=== PATIENT | female | born 1965 | race Caucasian/White ===

== ENCOUNTER → 2019-01-28 | Outpatient (CLI) | payer OTHER ==
--- NOTE | 2019-01-28 11:02 | MR ---
EXAMINATION TYPE: MR shoulder LT wo con DATE OF EXAM: 01/28/2019 COMPARISON: None HISTORY: Left shoulder pain TECHNIQUE: Multiplanar, multisequence imaging of the left shoulder is performed without contrast. FINDINGS: Rotator Cuff: There is mild atrophic change of the supraspinatus and infraspinatus muscles. There is diffuse abnormal signal involving the anterior fibers of the supraspinatus tendon along its distal ma rgin and insertion measuring approximately 1.2 cm. Findings are compatible with a partial tear. No re traction. There is increased signal along the distal margin and insertion of the infraspinatus tendon compatibl e with a partial intrasubstance tear no retraction. Acromioclavicular Joint: Mild hypertrophic change of the AC joint results in mild impingement suprasp inatus tendon and muscle. Glenohumeral Joint: No sizable joint effusion. Glenohumeral ligaments grossly intact. Labrum: Findings are suspicious for a SLAP tear Biceps Tendon: The long head of biceps is in normal location within bicipital groove. Bone marrow signal: Benign cyst involving the superior humeral head likely in the basis of impingemen t. IMPRESSION: 1. Impingement with tendinosis involving the distal supraspinatus tendon with anterior fibers demonst rating partial tear but no evidence of retraction at the level of the insertion. 2. SLAP tear 3. Tendinosis of the distal margin and insertion infraspinatus tendon. Partial intrasubstance tear olivarez spected. No retraction.
== END | disposition home or self-care (01) ==
LOC: RADMRIMAIN 09:42
PROVIDERS: ATTEND Physician Assistant Medical
DX: S43.432A Superior glenoid labrum lesion of left shoulder, initial encounter (principal); M75.42 Impingement syndrome of left shoulder; M75.112 Incomplete rotator cuff tear or rupture of left shoulder, not specified as traumatic; M75.82 Other shoulder lesions, left shoulder

== ENCOUNTER 2019-12-19 20:22 | Emergency (ER) | payer OTHER ==
[2019-12-19] MEDS ORDERED: SODIUM CHLORIDE 0.9% 1,000 ML IV STA (20:50)
[2019-12-19] MEDS ORDERED: ONDANSETRON 4 MG/2 ML VIAL IVP STA (20:50)
[2019-12-19] MEDS ORDERED: diphenhydrAMINE 50 MG/ML 1 ML VIAL IVP STA (20:50)
--- NOTE | 2019-12-19 20:50 | ED ---
Dizziness HPI - General Chief Complaint: Dizziness Stated Complaint: Dizziness Time Seen by Provider: 12/19/19 20:26 Source: EMS, RN notes reviewed, old records reviewed Mode of arrival: EMS Limitations: no limitations - History of Present Illness Initial Comments: This is a 54 year female DF for evaluation patient is safe for evaluation regards to dizziness. Room spinning around. Lightheadedness with nausea or vomiting. No recent traumas no fevers. Patient has never had similar symptoms before. MD Complaint: dizziness, lightheadedness, difficulty walking -: hour(s) Timing: sudden onset Description: "room spinning", lightheadedness History of Same: No History of Trauma: No Severity: mild Improves With: medication Worsens With: nothing Associated Symptoms: ataxia, loss of appetite, weakness - Related Data Home Medications Medication Instructions Recorded Confirmed Zolpidem Tartrate [Ambien] 10 mg PO HS PRN 08/02/15 09/04/15 Previous Rx's Medication Instructions Recorded Aspirin EC [Ecotrin] 325 mg PO DAILY #30 tablet. 08/03/15 Atorvastatin Calcium [Lipitor] 40 mg PO HS #30 tab 08/03/15 Allergies Allergy/AdvReac Type Severity Reaction Status Date / Time No Known Allergies Allergy Verified 12/19/19 20:35 Review of Systems ROS Statement: Those systems with pertinent positive or pertinent negative responses have been documented in the HPI. ROS Other: All systems not noted in ROS Statement are negative. Past Medical History Past Medical History: Fibromyalgia Additional Past Medical History / Comment(s): lupus History of Any Multi-Drug Resistant Organisms: None Reported Past Surgical History: Bariatric Surgery Additional Past Anesthesia/Blood Transfusion Reaction / Comment(s): NA Past Psychological History: Anxiety, Bipolar, Depression Smoking Status: Never smoker Past Alcohol Use History: None Reported Past Drug Use History: None Reported - Past Family History Mother Family Medical History: Myocardial Infarction ([place]) Father Additional Family Medical History / Comment(s): hypotension General Exam Limitations: no limitations General appearance: alert, in no apparent distress Head exam: Present: atraumatic, normocephalic, normal inspection Eye exam: Present: normal appearance, PERRL, EOMI. Absent: scleral icterus, conjunctival injection, periorbital swelling ENT exam: Present: normal exam, mucous membranes moist Neck exam: Present: normal inspection. Absent: tenderness, meningismus, lymphadenopathy Respiratory exam: Present: normal lung sounds bilaterally. Absent: respiratory distress, wheezes, rales, rhonchi, stridor Cardiovascular Exam: Present: regular rate, normal rhythm, normal heart sounds. Absent: systolic murmur, diastolic murmur, rubs, gallop, clicks GI/Abdominal exam: Present: soft, normal bowel sounds. Absent: distended, tenderness, guarding, rebound, rigid Extremities exam: Present: normal inspection, full ROM, normal capillary refill. Absent: tenderness, pedal edema, joint swelling, calf tenderness Back exam: Present: normal inspection Neurological exam: Present: alert, oriented X3, CN II-XII intact Psychiatric exam: Present: normal affect, normal mood Skin exam: Present: warm, dry, intact, normal color. Absent: rash Course Vital Signs 12/19/19 12/19/19 20:27 22:03 Temperature 98.3 F Pulse Rate 65 70 Respiratory 18 18 Rate Blood Pressure 176/72 161/88 O2 Sat by Pulse 97 97 Oximetry - Reevaluation(s) Reevaluation #1: 12/19/19 21:18 medical record is reviewed Reevaluation #2: 12/19/19 22:33 Patient is able to ambulate without significant dizziness not ataxic Reevaluation #3: 12/19/19 22:33 Patient informed of results, patient can be discharged home EKG Findings - EKG Comments: EKG Findings:: EKG shows sinus a rate of 72, ID 144, QRS 90, QTc 422 Medical Decision Making - Medical Decision Making 54 female DF for evaluation of dizziness, room spinning and vomiting. Symptoms are resolved here in the ER patient does feel improved at this time is able to ambulatory without significant difficulty. Patient can be discharged home - Lab Data Result diagrams: 12/19/19 20:55 12/19/19 20:55 Lab Results 12/19/19 12/19/19 12/19/19 Range/Units 20:55 20:55 20:55 WBC 6.5 (3.8-10.6) k/uL RBC 4.63 (3.80-5.40) m/uL Hgb 12.3 (11.4-16.0) gm/dL Hct 39.1 (34.0-46.0) % MCV 84.4 (80.0-100.0) fL MCH 26.5 (25.0-35.0) pg MCHC 31.4 (31.0-37.0) g/dL RDW 14.9 (11.5-15.5) % Plt Count 184 (150-450) k/uL Neutrophils % (Manual) 67 % Lymphocytes % (Manual) 28 % Monocytes % (Manual) 3 % Eosinophils % (Manual) 2 % Neutrophils # (Manual) 4.36 (1.3-7.7) k/uL Lymphocytes # (Manual) 1.82 (1.0-4.8) k/uL Monocytes # (Manual) 0.20 (0-1.0) k/uL Eosinophils # (Manual) 0.13 (0-0.7) k/uL Nucleated RBCs 0 (0-0) /100 WBC Manual Slide Review Performed Polychromasia Present Sodium 138 (137-145) mmol/L Potassium 4.4 (3.5-5.1) mmol/L Chloride 108 H (98-107) mmol/L Carbon Dioxide 22 (22-30) mmol/L Anion Gap 8 mmol/L BUN 13 (7-17) mg/dL Creatinine 0.63 (0.52-1.04) mg/dL Est GFR (CKD-EPI)AfAm >90 (>60 ml/min/1.73 sqM) Est GFR (CKD-EPI)NonAf >90 (>60 ml/min/1.73 sqM) Glucose 120 H (74-99) mg/dL Calcium 9.2 (8.4-10.2) mg/dL Phosphorus 3.5 (2.5-4.5) mg/dL Magnesium 1.9 (1.6-2.3) mg/dL Total Bilirubin 0.3 (0.2-1.3) mg/dL AST 30 (14-36) U/L ALT 14 (4-34) U/L Alkaline Phosphatase 71 (38-126) U/L Troponin I <0.012 (0.000-0.034) ng/mL Total Protein 7.2 (6.3-8.2) g/dL Albumin 3.9 (3.5-5.0) g/dL - Radiology Data Radiology results: report reviewed (CT brain is negative for acute disease), image reviewed Disposition Clinical Impression: Benign paroxysmal positional vertigo Disposition: HOME SELF-CARE Condition: Good Instructions (If sedation given, give patient instructions): Vertigo (ED) Is patient prescribed a controlled substance at d/c from ED?: No Referrals: Zelda Alejandra MD [Primary Care Provider] - 1-2 days
[2019-12-19 21:17] LABS: HCT 39.1 % (34.0-46.0); HGB 12.3 gm/dL (11.4-16.0); MCH 26.5 pg (25.0-35.0); MCHC 31.4 g/dL (31.0-37.0); MCV 84.4 fL (80.0-100.0); Mean Platelet Volume 8.1; Platelet Count 184 k/uL (150-450); RBC 4.63 m/uL (3.80-5.40); RDW 14.9 % (11.5-15.5); WBC 6.5 k/uL (3.8-10.6)
--- NOTE | 2019-12-19 21:17 | CT ---
EXAMINATION TYPE: CT brain wo con DATE OF EXAM: 12/19/2019 COMPARISON: 08/01/2015 HISTORY: Dizziness. CT DLP: 1099.4 mGycm Automated exposure control for dose reduction was used. Multiple axial sections were obtained of the brain without contrast. Ventricles and sulci appear normal. There is no mass effect nor midline shift. There is no sign of in tracranial hemorrhage. Calvarium is intact. There is mild mucosal thickening left maxillary sinus. IMPRESSION: Negative CT scan of the brain. Left maxillary sinusitis. There is changing pattern of sinusitis roxanna red to old exam.
[2019-12-19 21:23] LABS: ALT 14 U/L (4-34); AST 30 U/L (14-36); African American GFR (CKD) >90 (>60 ml/min/1.73 sqM); Albumin 3.9 g/dL (3.5-5.0); Alkaline Phosphatase 71 U/L (38-126); Anion Gap 8 mmol/L; Blood Urea Nitrogen 13 mg/dL (7-17); Calcium 9.2 mg/dL (8.4-10.2); Carbon Dioxide 22 mmol/L (22-30); Chloride 108 mmol/L (98-107); Glucose 120 mg/dL (74-99); Magnesium 1.9 mg/dL (1.6-2.3); Non-African American GFR(CKD) >90 (>60 ml/min/1.73 sqM); Phosphorus 3.5 mg/dL (2.5-4.5); Sodium 138 mmol/L (137-145); Total Bilirubin 0.3 mg/dL (0.2-1.3); Total Protein 7.2 g/dL (6.3-8.2)
[2019-12-19 21:35] LABS: Eosinophils # (M) 0.13 k/uL (0-0.7); Lymphocytes # (M) 1.82 k/uL (1.0-4.8); Neutrophils # (M) 4.36 k/uL (1.3-7.7); Neutrophils % (M) 67 %; Nucleated Red Blood Cells 0 /100 WBC (0-0); Total Cells Counted 100
[2019-12-19 21:36] LABS: Polychromasia Present
[2019-12-19 21:58] LABS: Potassium 4.4 mmol/L (3.5-5.1)
[2019-12-19 23:48] VITALS: BP 144/76; PULSE 84; RESP 16; TEMP 98.1
== END 2019-12-19 23:48 | disposition home or self-care (01) ==
LOC: EC 20:22
DX: H81.10 Benign paroxysmal vertigo, unspecified ear (principal); Z98.84 Bariatric surgery status
CPT/HCPCS: 36415; 93005; 80053; 83735; 84100; 84484; 85025; 70450; 99285; 96374; 96375; 96361 ×3; J1200; J2405

== ENCOUNTER → 2020-08-17 | Outpatient (CLI) | payer OTHER ==
[2020-08-17 14:02] LABS: Potassium 3.6 mmol/L (3.5-5.1)
[2020-08-17 14:04] LABS: Basophils # (A) 0.1 k/uL (0-0.2); Basophils % (A) 1 %; Eosinophils # (A) 0.2 k/uL (0-0.7); Eosinophils % (A) 3 %; HCT 44.3 % (34.0-46.0); HGB 14.2 gm/dL (11.4-16.0); Lymphocytes # (A) 1.6 k/uL (1.0-4.8); Lymphocytes % (A) 24 %; MCH 27.7 pg (25.0-35.0); MCHC 32.1 g/dL (31.0-37.0); MCV 86.2 fL (80.0-100.0); Mean Platelet Volume 7.8; Monocytes # (A) 0.3 k/uL (0-1.0); Monocytes % (A) 4 %; Neutrophils # (A) 4.4 k/uL (1.3-7.7); Neutrophils % (A) 66 %; Platelet Count 222 k/uL (150-450); RBC 5.14 m/uL (3.80-5.40); RDW 14.7 % (11.5-15.5); WBC 6.7 k/uL (3.8-10.6)
== END | disposition home or self-care (01) ==
LOC: LABPAT 11:31
PROVIDERS: ATTEND Orthopaedic Surgery
DX: Z01.818 Encounter for other preprocedural examination (principal); M23.92 Unspecified internal derangement of left knee
CPT/HCPCS: 80051; 85025; 93005

== ENCOUNTER → 2020-09-13 | Outpatient (CLI) | payer OTHER ==
--- NOTE | 2020-09-13 21:49 | MR ---
EXAMINATION TYPE: MR knee LT wo con DATE OF EXAM: 09/13/2020 COMPARISON: None HISTORY: left knee pain TECHNIQUE: Multiplanar, multisequence imaging of the left knee is performed without IV contrast. FINDINGS: MEDIAL MENISCUS: Anterior horn medial meniscus appears normal. Posterior horn medial meniscus has mil d increased signal near the anterior portion. Some mild internal derangement may be present. No commu nication with the articular surface is evident. LATERAL MENISCUS: Anterior and posterior horns are intact without tear. CRUCIATE LIGAMENTS: The anterior and posterior cruciate ligaments are intact and unremarkable. COLLATERAL LIGAMENTS: The medial collateral ligament and lateral collateral ligament complex are inta ct and unremarkable. EXTENSOR MECHANISM: Visualized quadriceps and patellar tendons are intact. EFFUSION: No significant suprapatellar joint effusion. POPLITEAL CYST: No popliteal/shafer cyst. TRICOMPARTMENT SPACES: There is narrowing of the medial compartment joint space. Lateral compartment joint space appears preserved. Patellofemoral joint space appears preserved. CARTILAGE: There is thinning of the articular cartilage at the medial compartment from the medial fem oral condyle. BONE MARROW SIGNAL: Minimal increased signal is at the medial tibial plateau likely a small contusion . OTHER: No additional significant abnormality is appreciated. IMPRESSION: 1. Posterior horn medial meniscal internal derangement. Tear communicating with an articular surface is considered less likely. 2. Mild osteoarthritic degenerative change medial compartment. 3. Small contusion at the edge of the medial tibial plateau.
== END | disposition home or self-care (01) ==
LOC: RADMRIMAIN 13:24
PROVIDERS: ATTEND Orthopaedic Surgery
DX: M17.12 Unilateral primary osteoarthritis, left knee (principal); S80.02XA Contusion of left knee, initial encounter; M23.322 Other meniscus derangements, posterior horn of medial meniscus, left knee

== ENCOUNTER 2021-06-10 13:47 | Emergency (ER) | payer OTHER ==
[2021-06-10 14:24] VITALS: RESP 16; TEMP 98
[2021-06-10] MEDS ORDERED: MORPHINE SULFATE 4 MG/ML SYRINGE IM STA (14:47)
[2021-06-10] MEDS ORDERED: methylPREDNISolone SOD SUCCI 125 MG/2 ML VIAL IM ONE (14:47)
--- NOTE | 2021-06-10 15:21 | XR ---
EXAMINATION TYPE: XR lumbar spine 3 views DATE OF EXAM: 06/10/2021 Comparison: None Clinical History: 55-year-old female chronic low back pain worsening today, sciatica Findings: Accentuated lumbar lordosis. Mild multilevel degenerative disc disease. Vertebral body heights are pr eserved and alignment is maintained. Facet arthropathy mid to lower lumbar spine. Impression: Facet arthropathy mid to lower lumbar spine. Accentuated lumbar lordosis. Mild multilevel degenerativ e disc disease. No vertebral compression collapse or malalignment.
--- NOTE | 2021-06-10 15:43 | ED ---
Back Pain HPI - General Chief Complaint: Back Pain/Injury Stated Complaint: back pain Time Seen by Provider: 06/10/21 14:34 Source: patient, RN notes reviewed Limitations: no limitations - History of Present Illness Initial Comments: 55-year-old female that presents to emergency room complaining of left lower back pain with radiation symptoms. She notes that she did not have any injury or trauma she woke up this morning with increased back pain. Patient denied any other issues or complaints. She denied any saddle anesthesia bladder or bowel incontinence or retention. She was otherwise a well-appearing 55-year-old female. She denied any chest pain first breath headache nausea vomiting diarrhea constipation fever fatigue chills. - Related Data Home Medications Medication Instructions Recorded Confirmed Zolpidem Tartrate [Ambien] 10 mg PO HS PRN 08/02/15 09/04/15 Previous Rx's Medication Instructions Recorded Aspirin EC [Ecotrin] 325 mg PO DAILY #30 tablet. 08/03/15 Atorvastatin Calcium [Lipitor] 40 mg PO HS #30 tab 08/03/15 predniSONE 50 mg PO DAILY #5 tab 06/10/21 Allergies Allergy/AdvReac Type Severity Reaction Status Date / Time No Known Allergies Allergy Verified 06/10/21 14:24 Review of Systems ROS Statement: Those systems with pertinent positive or pertinent negative responses have been documented in the HPI. ROS Other: All systems not noted in ROS Statement are negative. Past Medical History Past Medical History: Fibromyalgia Additional Past Medical History / Comment(s): lupus History of Any Multi-Drug Resistant Organisms: None Reported Past Surgical History: Bariatric Surgery Additional Past Anesthesia/Blood Transfusion Reaction / Comment(s): NA Past Psychological History: Anxiety, Bipolar, Depression Smoking Status: Never smoker Past Alcohol Use History: None Reported Past Drug Use History: None Reported - Past Family History Mother Family Medical History: Myocardial Infarction ([place]) Father Additional Family Medical History / Comment(s): hypotension General Exam Limitations: no limitations General appearance: alert, in no apparent distress, obese (Morbidly) Head exam: Present: atraumatic, normocephalic, normal inspection Eye exam: Present: normal appearance, PERRL, EOMI. Absent: scleral icterus, conjunctival injection, periorbital swelling Neck exam: Present: normal inspection Respiratory exam: Present: normal lung sounds bilaterally. Absent: respiratory distress, wheezes, rales, rhonchi, stridor Cardiovascular Exam: Present: regular rate, normal rhythm, normal heart sounds. Absent: systolic murmur, diastolic murmur, rubs, gallop, clicks GI/Abdominal exam: Present: soft, normal bowel sounds. Absent: distended, tenderness, guarding, rebound, rigid Extremities exam: Present: normal inspection, full ROM, normal capillary refill. Absent: tenderness, pedal edema, joint swelling, calf tenderness Back exam: Present: normal inspection, tenderness (Left SI) Neurological exam: Present: alert, oriented X3 Psychiatric exam: Present: normal affect, normal mood Skin exam: Present: warm, dry, intact, normal color. Absent: rash Course Vital Signs 06/10/21 14:20 Temperature 98.0 F Pulse Rate 84 Respiratory 16 Rate Blood Pressure 159/74 O2 Sat by Pulse 95 Oximetry Medical Decision Making - Medical Decision Making 55-year-old female complaining of left low back pain with some radicular symptoms. X-ray lumbar spine, 125 mg of methylprednisolone, 4 g of morphine ordered. X-ray of the lumbar spine shows no acute osseous abnormality. - Radiology Data Radiology results: report reviewed, image reviewed Lumbar spine x-ray: Facet arthropathy mid to lower lumbar spine. Accentuated lumbar lordosis. Multiple level degenerative disc disease. No vertebral compression clots or malalignment. Disposition Clinical Impression: Sciatica Disposition: HOME SELF-CARE Condition: Stable Instructions (If sedation given, give patient instructions): Acute Low Back Pain (ED) Additional Instructions: Please return to the Emergency Department if symptoms worsen or any other concerns. Follow-up with primary care in the next 1-2 days. Take steroids as prescribed. Is patient prescribed a controlled substance at d/c from ED?: No Referrals: Zelda Alejandra MD [Primary Care Provider] - 1-2 days Time of Disposition: 15:43
[2021-06-10 15:56] VITALS: BP 148/76; PULSE 82
== END 2021-06-10 15:56 | disposition home or self-care (01) ==
LOC: EC 13:47
DX: M54.42 Lumbago with sciatica, left side (principal); F31.9 Bipolar disorder, unspecified; M79.7 Fibromyalgia; M32.9 Systemic lupus erythematosus, unspecified; Z79.52 Long term (current) use of systemic steroids; Z79.82 Long term (current) use of aspirin
CPT/HCPCS: 72100; 99283; 96372 ×2; J2270; J2930

== ENCOUNTER → 2022-03-28 | Outpatient (CLI) | payer OTHER ==
--- NOTE | 2022-03-28 14:23 | US ---
EXAMINATION TYPE: US abdomen complete DATE OF EXAM: 03/28/2022 COMPARISON: NONE CLINICAL HISTORY: [id number] ELEVATED LIVER ENZYMES. elevated liver enzymes exam limitations due to body sal bitus. EXAM MEASUREMENTS: Liver Length: 24.6 cm Gallbladder Wall: .3 cm CBD: .6 cm Spleen: 11.0 cm Right Kidney: 11.0 x 4.2 x 4.1 cm Left Kidney: 11.1 x 4.8 x 4.3 cm Pancreas: Obscured by bowel gas Liver: Increased attenuation Gallbladder: No stones seen Evidence for sonographic Ramirez's sign: No CBD: wnl Spleen: wnl Right Kidney: wnl Left Kidney: wnl Upper IVC: wnl Abd Aorta: wnl IMPRESSION: Hepatomegaly
== END | disposition home or self-care (01) ==
LOC: RADUSWWP 10:44
PROVIDERS: ATTEND Family Medicine
DX: R16.0 Hepatomegaly, not elsewhere classified (principal)
CPT/HCPCS: 76700

== ENCOUNTER → 2022-11-20 | Outpatient (CLI) | payer OTHER ==
--- NOTE | 2022-11-20 20:11 | US ---
EXAMINATION TYPE: US thyroid st tissue head/neck DATE OF EXAM: 11/20/2022 COMPARISON: NONE CLINICAL HISTORY: 57-year-old female E03.9 HYPOTHYROIDISM. Abnormal labs. On thyroid medicine. TECHNIQUE: Multiple sonographic images of the thyroid gland are obtained. FINDINGS: GLAND SIZE: Right Lobe: 4.9 x 1.5 x 1.7 cm Overall Parenchyma: heterogenous Left Lobe: 4.6 x 1.8 x 1.4 cm Overall Parenchyma: heterogeneous Isthmus Thickness: 0.4 cm NODULES Bilateral heterogenous thyroid lobes with no prominent nodules visualized RIGHT: # of nodules measured on right: 0 LEFT: # of nodules measured on left: 1 1. Lateral posterior calcified nodule measuring 0.8 x 0.6 cm ISTHMUS: # of nodules measured in the isthmus: 0.4 Bilateral neck scanned. Superior to left lobe, prominent lymph node seen measuring 1.5 x 1.0 x 0.8 c m. Borderline cortical thickening up to 2.8 mm IMPRESSION: 1. Diffusely heterogeneous thyroid gland with borderline thyromegaly. Findings could reflect goiter o r diffuse thyroiditis including Luis's. Clinically correlate. 2. Borderline sized 1.0 cm short axis lymph node along the left side of the neck likely reactive/post inflammatory. This can be followed clinically.
--- NOTE | 2022-11-21 08:51 | MM ---
Reason for Exam: Screening (asymptomatic). Last mammogram was performed 7 year(s) and 2 month(s) ago. Patient History: Menarche at age 9. First Full-Term at age 20. Risk Values: Mariam 5 year model risk: 1.4%. NCI Lifetime model risk: 7.4%. Prior Study Comparison: 01/01/2006 Bilateral Screening Mammogram, [facility]. 08/28/2015 Bilateral Screening Mammogram, [facility]. Tissue Density: There are scattered fibroglandular densities. Findings: Analyzed By CAD. Pattern appears symmetrical and stable. Scattered benign calcifications are present. No suspicious groups of microcalcifications, spiculated or lobular masses, architectural distortion or other secondary signs of malignancy are mammographically apparent. Overall Assessment: Benign, BI-RAD 2 Management: Screening Mammogram of both breasts in 1 year. A negative mammogram report should not preclude additional follow up of suspicious palpable abnormalities. Patient should continue monthly self breast exam. A clinical breast exam by your physician is recommended on an annual basis and results should be correlated with mammographic findings. Electronically signed and approved by: Austin Dumont D.O. Radiologis
== END | disposition home or self-care (01) ==
LOC: RADMAMWWP 13:01
PROVIDERS: ATTEND Family Medicine
DX: Z12.31 Encounter for screening mammogram for malignant neoplasm of breast (principal); E03.9 Hypothyroidism, unspecified; E07.89 Other specified disorders of thyroid
CPT/HCPCS: 76536; 77063; 77067

== ENCOUNTER 2023-04-21 06:33 | Day surgery (SDC) | payer OTHER ==
[2023-03-06 15:17] VITALS: BMI 56.2
[~2023-04-21 06:33] MED LIST: LACTATED RINGERS 1,000 ML IV SCH; LIDOCAINE 1% (10MG/ML) FOR IV START INTRADERMA PRN
[2023-04-21 06:51] VITALS: TEMP 97.5
[2023-04-21] MEDS ORDERED: PROPOFOL 10 MG/ML 20 ML VIAL IV ONE (07:25)
[2023-04-21] MEDS ORDERED: LIDOCAINE 2% INJ 20 MG/ML (2 ML VIAL) ONE (07:25)
--- NOTE | 2023-04-21 07:45 | P.PCN ---
Date of Procedure: 04/21/23 Procedure(s) Performed: Brief history: Patient is a pleasant 57-year-old pleasant white female scheduled for an elective upper endoscopy as well as colonoscopy as a part of evaluation of, sensory of GERD and intermittent rectal bleeding Procedure performed: Esophagogastroduodenoscopy Colonoscopy Preoperative diagnosis: Long-standing history of GERD Intermittent rectal bleeding Anesthesia: MAC Procedure: After informed consent was obtained from the patient was brought into the endoscopy unit and IV sedation was administered by anesthesia under continuous monitoring. Initially upper endoscopy was done. The Olympus GF 160 video endoscope was inserted inserted into the mouth and esophagus intubated without any difficulty and was gradually advanced into the stomach and duodenum and carefully examined. The bulb and second part of the duodenum appeared normal. The scope was then withdrawn into the stomach adequately insufflated with air and upon careful examination the antrum and body, cardia and fundus appeared normal. The scope was then withdrawn into the esophagus. Small to moderate sessile hernia noted. The GE junction was located at 36 cm to the incisors. It appeared regular linear erosions consistent with [place] grade B reflux esophagitis.. Rest of the esophagus appeared normal. Patient tolerated the procedure well. At this time the patient continued to remain sedation. Initial digital rectal examination was normal. Olympus CF 160 video colonoscope was then inserted into the rectum and gradually advanced to the cecum without any difficulty. Careful examination was performed as the scope was gradually being withdrawn. The prep was excellent. The cecum, ascending colon, transverse colon, descending colon, sigmoid colon and rectum appeared normal. Retroflexion was performed in the rectum and small internal hemorrhoids were noted. Patient tolerated the procedure well. Impression: 1. Upper endoscopy revealed small to moderate size hiatal hernia and multiple linear erosions in the esophagus esophagus consistent with [place] grade B reflux esophagitis 2. Colonoscopy revealed small internal hemorrhoids but no evidence of colorectal neoplasia Recommendations: Findings of this examination were discussed with the patient as well as her family. She was advised to stop Pepcid and start omeprazole 20 mg daily and follow antireflux measures. Recommend a high-fiber diet and fiber supplements a regular basis. Repeat screening colonoscopy in 10 years.
[2023-04-21 08:35] VITALS: BP 119/85; PULSE 86; RESP 16
== END 2023-04-21 08:47 | disposition home or self-care (01) ==
LOC: ORWHC2ENDO 06:33
PROVIDERS: ATTEND Internal Medicine Gastroenterology
DX: K64.8 Other hemorrhoids (principal); K21.00 Gastro-esophageal reflux disease with esophagitis, without bleeding; K44.9 Diaphragmatic hernia without obstruction or gangrene; G47.33 Obstructive sleep apnea (adult) (pediatric); Z99.89 Dependence on other enabling machines and devices; E03.9 Hypothyroidism, unspecified; F41.9 Anxiety disorder, unspecified; F32.A Depression, unspecified; M79.7 Fibromyalgia; E66.01 Morbid (severe) obesity due to excess calories; Z68.43 Body mass index [BMI] 50.0-59.9, adult; Z79.899 Other long term (current) drug therapy
CPT/HCPCS: 45378; 43235; J2704; J2001

== ENCOUNTER → 2024-03-23 | Outpatient (CLI) | payer OTHER ==
--- NOTE | 2024-03-27 15:21 | US ---
EXAMINATION TYPE: US venous doppler duplex LE DATE OF EXAM: 03/23/2024 10:08 AM COMPARISON: 08/03/2014 CLINICAL INDICATION: Female, 58 years old with history of M79.89 OTHER SPECIFIED SOFT TISSUE DISORDER S; feet swelling x a few weeks SIDE PERFORMED: Bilateral TECHNIQUE: The lower extremity deep venous system is examined utilizing real time linear array sonog erin with graded compression, doppler sonography and color-flow sonography. VESSELS IMAGED: Common Femoral Vein Deep Femoral Vein Greater Saphenous Vein * Femoral Vein Popliteal Vein Small Saphenous Vein * Proximal Calf Veins (* superficial vessels) Grayscale, color doppler, spectral doppler imaging performed of the deep veins of the lower extremiti es. There is normal flow, compressibility, vascular waveforms. Right Leg: Negative for DVT, anechoic fluid collection within the popliteal fossa the right knee jaime suring 3.6 x 1.3 cm. Left Leg: Negative for DVT exam limited by large body habitus IMPRESSION: 1. Limited examination with no ultrasound evidence for deep venous thrombosis of the bilateral lower extremities. 2. Right popliteal fossa cyst.
== END | disposition home or self-care (01) ==
LOC: RADUSWWP 09:28
PROVIDERS: ATTEND Family Medicine
DX: M79.89 Other specified soft tissue disorders (principal); M71.21 Synovial cyst of popliteal space [Baker], right knee
CPT/HCPCS: 93970